=== PATIENT | female | born 1975 | race Caucasian/White ===

== ENCOUNTER 2017-07-29 12:30 | Outpatient (CLI) | payer OTHER ==
--- NOTE | 2017-07-29 15:41 | MRI ---
MRI BRAIN WITH AND WITHOUT GADOLINIUM CONTRAST 07/29/17 HISTORY: Slurred speech. Body numbness. Altered mental status. FINDINGS: No comparison. There is no evidence of acute intracranial hemorrhage or infarct. The ventricles appear normal in siz e, shape and position. There is no mass effect, shift of midline structures, or abnormal areas of con trast enhancement. IMPRESSION: No acute intracranial abnormalities are demonstrated. POS: [facility]
== END 2017-07-29 12:31 | disposition home or self-care (01) ==
LOC: SCSMRI 12:30
PROVIDERS: ATTEND Psychiatry & Neurology Neurology
DX: S06.890A Other specified intracranial injury without loss of consciousness, initial encounter (principal)
CPT/HCPCS: 70553; 95816